=== PATIENT | male | born 1960 | race Caucasian/White ===

== ENCOUNTER 2016-12-31 08:05 | Emergency (ER) | payer OTHER ==
[2016-12-31 08:16] VITALS: RESP 16
[2016-12-31 08:36] LABS: % IMMATURE GRANULYOCYTES 0.3 % (0.0-1.1); ABSOLUTE IMMATURE GRANULOCYTES 0.03 10^3/uL (0.00-0.10); ADD DIFF? NO; ADD MORPH? NO; ADD SCAN? NO; ATYPICAL LYMPHOCYTE FLAG 10 (0-99); FRAGMENT RBC FLAG 0 (0-99); HEMATOCRIT 46.9 % (40.0-51.0); HEMOGLOBIN 16.3 g/dL (13.7-17.5); LEFT SHIFT FLG 0 (0-99); LIPEMIA HEMOLYSIS FLAG 90 (0-99); MEAN CELL HEMOGLOBIN 31.5 pg (27.9-34.1); MEAN CELL HEMOGLOBIN CONCENTR. 34.8 g/dL (32.4-36.7); MEAN CELL VOLUME 90.5 fL (81.5-99.8); MEAN PLATELET VOLUME 10.2 fL (8.7-11.7); PLATELET CLUMPS FLAG 0 (0-99); PLATELET COUNT 191 10^3/uL (150-400); RED BLOOD CELL COUNT 5.18 10^6/uL (4.40-6.38); RED CELL DISTRIBUTION WIDTH 13.1 % (11.5-15.2)
--- NOTE | 2016-12-31 08:36 | EDPHY ---
H & P Stated Complaint: upper abd epigastric pain for 4 days, worse yesterday. Time Seen by Provider: 12/31/16 08:19 HPI/ROS: This patient has epigastric pain that is described as achy in nature 3/10 intensity and nonradiating. If the worsened with food last night he notes no other exacerbating or alleviating factors. Symptoms 1st started gradually 4 days ago and became constant 2 days prior to arrival. He notes no other exacerbating or alleviating factors besides the food worsening symptoms. He has had some GERD symptoms with acid reflux feeling into his esophagus at times does not think the symptoms are worse when he is lying flat compared to standing up. He drove himself here by private car for further evaluation. He is also concerned about pancreatitis as he did have 1 episode of pancreatitis 13 years ago and had cholecystectomy at that time. ROS: No fevers chills or other constitutional symptoms HEENT: No complaints Pulmonary: No shortness of breath. No cough. Cardiovascular: No chest pain. No heart palpitations no lower knee swelling, no lightheadedness. GI: No nausea or vomiting. Normal bowel movements. No diarrhea. He does report feeling of abdominal bloating that is mild. : No urinary symptoms or testicular pain. Neuro: No complaints Endocrine no complaints Integumentary: No skin rash 10 point ROS is otherwise negative. Source: Patient Exam Limitations: No limitations - Personal History Current Tetanus Diphtheria and Acellular Pertussis (TDAP): Yes Tetanus Vaccine Date: unsure - Medical/Surgical History PMH: Alcohol abuse in the past he quit smoking 13 years ago when he had pancreatitis. Cholecystitis with cholecystectomy Borderline hypertension Hx Asthma: No Hx Chronic Respiratory Disease: No Hx Diabetes: No Hx Cardiac Disease: No Hx Renal Disease: No Hx Cirrhosis: No Hx Alcoholism: No Hx HIV/AIDS: No Hx Splenectomy or Spleen Trauma: No Other PMH: hiv, pancreatitis - Family History Significant Family History: Heart disease (Father had quadruple bypass at age 50 ) - Social History Smoking Status: Current some day smoker Alcohol Use: None Drug Use: None - Physical Exam Exam: General Appearance: Alert, no distress. Eyes: Pupils equal and round no pallor or injection. ENT, Mouth: Mucous membranes moist. Oropharynx is clear with no dysphonia Respiratory: There are no retractions, lungs are clear to auscultation. Cardiovascular: Regular rate and rhythm. No murmur gallop or rub no peripheral edema. Gastrointestinal: Normoactive, soft, mild right upper quadrant tenderness with no guarding or rebound. Back: No CVA tenderness Neurological: GCS 15 with no focal sensory or motor deficits. Skin: Warm and dry, no rashes. Musculoskeletal: Neck is supple nontender. Extremities are symmetrical, full range of motion. Psychiatric: Mood and affect are normal DIFFERENTIAL DIAGNOSIS: After history and physical exam differential diagnosis was considered for GERD, gastritis, ulcer, hepatitis, pancreatitis, cardiac disease Constitutional: Initial Vital Signs Temperature (C) 36.9 C 12/31/16 08:14 Heart Rate 74 12/31/16 08:14 Respiratory Rate 16 12/31/16 08:14 Blood Pressure 155/108 H 12/31/16 08:14 O2 Sat (%) 92 12/31/16 08:14 O2 Delivery Mode Room Air Allergies/Adverse Reactions: lisinopril [From Prinivil] Allergy (Unknown, Verified 09/28/12 09:00) Home Medications: Medication Instructions Recorded *Pharmacy Completed See Comment 09/28/12 09/28/12 Eszopiclone [Lunesta] 3 mg PO HS 09/28/12 Pramipexole Di-HCl [Mirapex 0.25 0.75 mg PO HS 09/28/12 mg (RX)] Reconciled By 10/10/12 Albuterol [Ventolin Hfa Inhaler] 2 puffs IH Q4 PRN #0 mdi 04/14/16 Descovy 200-25 mg Tablet 04/14/16 Tivicay 04/14/16 levOFLOXACIN [levAQUIN (*)] 750 mg PO DAILY #10 tab 04/14/16 methylPREDNISolone [Medrol Dose 1 each PO AD #0 ea 04/14/16 Carrillo] Medical Decision Making - Diagnostics EKG Interpretation: 12 lead EKG performed at 8:36 a.m. indication epigastric pain rule out coronary syndrome or other abnormalities reveals sinus rhythm at 64 Intervals: Normal throughout [place]: Normal throughout ST segments: Normal throughout Overall assessment: Normal EKG. Please refer to trace master for complete read ED Course/Re-evaluation: IV . Patient declines analgesics initially. Review of patient's labs reveals normal comp metabolic panel and normal lipase. The minimal leukocytosis but no anemia. Patient is treated with a GI cocktail with partial improvement. Discussion: After workup, patient's presentation is most consistent with gastritis or GERD. No evidence of VA, hepatitis, pancreatitis, he does not have a surgical abdomen. Explained to the patient that differential diagnosis does include H pylori and he understands the need to follow up with GI for any ongoing symptoms despite the treatment plan. He also understands the need to return to the emergency department should he have any significant worsening of symptoms despite the treatment plan as today's diagnosis is initial diagnosis. - Data Points Laboratory Results: Laboratory Results 12/31/16 08:20 12/31/16 08:20 12/31/16 12/31/16 08:20 08:20 WBC 10.24 10^3/uL H 10^3/uL (3.80-9.50) RBC 5.18 10^6/uL 10^6/uL (4.40-6.38) Hgb 16.3 g/dL g/dL (13.7-17.5) Hct 46.9 % % (40.0-51.0) MCV 90.5 fL fL (81.5-99.8) MCH 31.5 pg pg (27.9-34.1) MCHC 34.8 g/dL g/dL (32.4-36.7) RDW 13.1 % % (11.5-15.2) Plt Count 191 10^3/uL 10^3/uL (150-400) MPV 10.2 fL fL (8.7-11.7) Neut % (Auto) 55.1 % % (39.3-74.2) Lymph % (Auto) 36.7 % % (15.0-45.0) Dickson % (Auto) 5.3 % % (4.5-13.0) Eos % (Auto) 1.9 % % (0.6-7.6) Baso % (Auto) 0.7 % % (0.3-1.7) Nucleat RBC Rel Count 0.0 % % (0.0-0.2) Absolute Neuts (auto) 5.65 10^3/uL 10^3/uL (1.70-6.50) Absolute Lymphs (auto) 3.76 10^3/uL H 10^3/uL (1.00-3.00) Absolute Monos (auto) 0.54 10^3/uL 10^3/uL (0.30-0.80) Absolute Eos (auto) 0.19 10^3/uL 10^3/uL (0.03-0.40) Absolute Basos (auto) 0.07 10^3/uL 10^3/uL (0.02-0.10) Absolute Nucleated RBC 0.00 10^3/uL 10^3/uL (0-0.01) Immature Gran % 0.3 % % (0.0-1.1) Immature Gran # 0.03 10^3/uL 10^3/uL (0.00-0.10) Sodium 140 mEq/L mEq/L (134-144) Potassium 4.2 mEq/L mEq/L (3.5-5.2) Chloride 107 mEq/L mEq/L (97-110) Carbon Dioxide 22 mEq/l mEq/l (22-31) Anion Gap 11 mEq/L mEq/L (8-16) BUN 12 mg/dL mg/dL (7-23) Creatinine 1.1 mg/dL mg/dL (0.7-1.3) Estimated GFR > 60 Glucose 115 mg/dL H mg/dL (70-100) Calcium 9.1 mg/dL mg/dL (8.5-10.4) Total Bilirubin 0.8 mg/dL D mg/dL (0.1-1.4) AST 20 IU/L IU/L (17-59) ALT 34 IU/L IU/L (21-72) Alkaline Phosphatase 80 IU/L IU/L (38-126) Total Protein 7.1 g/dL g/dL (6.3-8.2) Albumin 4.1 g/dL g/dL (3.5-5.0) Lipase 92 IU/L IU/L (23-300) Medications Given: Discontinued Medications Al Hydroxide/Mg Hydroxide (Maalox Susp) 30 ml PO EDNOW ONE Stop: 12/31/16 09:07 Last Admin: 12/31/16 09:12 Dose: 30 ml Hyoscyamine Sulfate (Levsin, Hyomax-Sl) 0.125 mg PO EDNOW ONE Stop: 12/31/16 09:08 Last Admin: 12/31/16 09:12 Dose: 0.125 mg Lidocaine (Lidocaine 2% Viscous) 5 ml PO EDNOW ONE Stop: 12/31/16 09:09 Last Admin: 12/31/16 09:12 Dose: 10 ml Departure - Departure Disposition: Home, Routine, Self-Care Clinical Impression: Gastritis Qualifiers: Gastritis type: other gastritis Chronicity: acute Gastritis bleeding: without bleeding Qualified Code(s): K29.00 - Acute gastritis without bleeding Condition: Good Instructions: Gastritis (ED), Diet for Stomach Ulcers and Gastritis (ED) Additional Instructions: Diagnosis: Gastritis Plan: [place] diet until he feel improved Start Zantac daily and use Maalox in addition. Separate the timing of ingestion of Zantac from your HIV meds by 2-6 hours. Follow up with primary care physician for recheck in 3-7 days If you're still not improving with treatment plan, make an appointment to see Dr. Dumont -GI specialist. His numbers provided below. Return to the emergency department for significant worsening despite the treatment plan Referrals: Rosita Root MD [Primary Care Provider] - As per Instructions Geovany Dumont MD [Medical Doctor] - As per Instructions
--- NOTE | 2016-12-31 08:38 | CPEKG ---
Heart Rate: 64 RR Interval: 938 P-R Interval: 192 QRSD Interval: 88 QT Interval: 400 QTC Interval: 413 P Henriette: 59 QRS Henriette: 10 T Wave Henriette: 12 EKG Severity - NORMAL ECG - EKG Impression: SINUS RHYTHM Electronically Signed By: Thom Antonio 31-Dec-2016 09:29:17
[2016-12-31 08:45] LABS: ALANINE AMINOTRANSFERASE 34 IU/L (21-72); ALBUMIN 4.1 g/dL (3.5-5.0); ALKALINE PHOSPHATASE 80 IU/L (38-126); ANION GAP 11 mEq/L (8-16); ASPARTATE AMINOTRANSFERASE 20 IU/L (17-59); BILIRUBIN,TOTAL 0.8 mg/dL (0.1-1.4); CALCIUM 9.1 mg/dL (8.5-10.4); CARBON DIOXIDE 22 mEq/l (22-31); CHLORIDE 107 mEq/L (97-110); CREATININE 1.1 mg/dL (0.7-1.3); GLOMERULAR FILTRATION RATE > 60; GLUCOSE 115 mg/dL (70-100); POTASSIUM 4.2 mEq/L (3.5-5.2); SODIUM 140 mEq/L (134-144); TOTAL PROTEIN 7.1 g/dL (6.3-8.2)
[2016-12-31] MEDS ORDERED: MAG HYDROX/AL HYDROX/SIMETH 30 ML UDCUP PO ONE (09:06)
[2016-12-31] MEDS ORDERED: HYOSCYAMINE SULFATE 0.125 MG TAB PO ONE (09:07)
[2016-12-31] MEDS ORDERED: LIDOCAINE 2% VISCOUS 15 ML UDCUP PO ONE (09:08)
[2016-12-31 09:34] VITALS: BP 142/88; PULSE 96; TEMP 98.2; O2SAT 94
== END 2016-12-31 09:34 | disposition home or self-care (01) ==
LOC: CED 08:05
DX: K29.00 Acute gastritis without bleeding (principal); F17.200 Nicotine dependence, unspecified, uncomplicated
CPT/HCPCS: 80053-PO; 83690-PO; 85025-PO

== ENCOUNTER → 2017-02-18 | Outpatient (CLI) | payer OTHER | LOC: FCPNEURO 23:46 | PROVIDERS: ATTEND Internal Medicine Sleep Medicine | DX: G47.33 Obstructive sleep apnea (adult) (pediatric) (principal); G47.61 Periodic limb movement disorder ==

== ENCOUNTER → 2017-09-19 | Outpatient (CLI) | payer OTHER | LOC: BMCIMAGING 10:43 | PROVIDERS: ATTEND Nurse Practitioner Adult Health | DX: M25.552 Pain in left hip (principal) ==

== ENCOUNTER 2018-04-05 09:56 | Inpatient (IN) | payer OTHER ==
--- NOTE | 2018-04-05 06:13 | PDHPUP ---
History & Physical Update H&P update statement: This history and physical update is based on an assessment of the patient which was completed after admission or registration (within 24 hours), but prior to the surgery/procedure. H&P update: H&P reviewed & patient examined, no change in patient's condition since H&P completed
[~2018-04-05 09:56] MED LIST: ROPIVACAINE 0.2% 80 MG, EPINEPHrine 0.2 MG, KETOROLAC TROMETHAMINE 30 MG in SYRINGE 0 ML IU ONE; TRANEXAMIC ACID 3,000 MG in NS (SYRINGE) 50 ML IRR ONE; TRANEXAMIC ACID 3,000 MG/50 ML BAG IRR ONE
[2018-04-05] MEDS ORDERED: DEXAMETHASONE 4 MG/ML VIAL IVP ONE (10:02)
[2018-04-05] MEDS ORDERED: ACETAMINOPHEN 325 MG TAB PO ONE (10:02)
[2018-04-05] MEDS ORDERED: FAMOTIDINE 20 MG TAB PO ONE (10:02)
[2018-04-05] MEDS ORDERED: ceFAZolin 2 GM/DEXTROSE 100 ML IV ONE (10:02)
[2018-04-05] MEDS ORDERED: LR 1,000 ML IV ONE (10:03)
[2018-04-05] MEDS ORDERED: BUPIVACAINE/DEXTROSE 7.5MG/ML 2 ML SPINAL AMP SP ONE (10:25)
[2018-04-05] MEDS ORDERED: PROPOFOL 200 MG/20 ML VIAL ONE (10:25)
[2018-04-05] MEDS ORDERED: LIDOCAINE 2% 5 ML SDV ONE (10:25)
[2018-04-05] MEDS ORDERED: PROPOFOL/EMULSION 500 MG/50 ML BOTTLE IV ONE ×2 (10:25)
[2018-04-05] MEDS ORDERED: MIDAZOLAM 2 MG/2 ML VIAL IVP ONE (10:37)
[2018-04-05] MEDS ORDERED: PHENYLEPHRINE HCL 100 MCG/ML SYR IVP PRN (10:38)
[2018-04-05] MEDS ORDERED: HYDROmorphONE/DILAUDID 2 MG/ML INJ IVP PRN (10:38)
[2018-04-05] MEDS ORDERED: METOCLOPRAMIDE 10 MG/2 ML VIAL IVP PRN ×2 (10:38→13:34)
[2018-04-05] MEDS ORDERED: NALOXONE HCL 0.4 MG/ML INJ IVP PRN (10:38)
[2018-04-05] MEDS ORDERED: oxyCODONE IR 5 MG TAB PO PRN (10:38)
[2018-04-05] MEDS ORDERED: LR 500 ML IV PRN (10:38)
[2018-04-05] MEDS ORDERED: ONDANSETRON 4 MG/2 ML VIAL IVP PRN ×2 (10:38→13:34)
[2018-04-05] MEDS ORDERED: MEPERIDINE 25 MG/0.5 ML AMP IVP PRN (10:38)
[2018-04-05] MEDS ORDERED: fentaNYL 100 MCG/2 ML INJ IVP PRN (10:38)
--- NOTE | 2018-04-05 11:25 | PDANEPAE ---
ANE Past Medical History - Cardiovascular History Hx Hypertension: Yes Hx Arrhythmias: No Hx Chest Pain: No Hx Coronary Artery / Peripheral Vascular Disease: No Hx CHF / Valvular Disease: No Hx Palpitations: No - Pulmonary History Hx COPD: No Hx Asthma/Reactive Airway Disease: No Hx Recent Upper Respiratory Infection: No Hx Oxygen in Use at Home: No Hx Sleep Apnea: Yes Sleep Apnea Screening Result - Last Documented: Positive Pulmonary History Comment: GABBI does not use CPAP - Neurologic History Hx Cerebrovascular Accident: No Hx Seizures: No Hx Dementia: No - Endocrine History Hx Diabetes: No - Renal History Hx Renal Disorders: No - Liver History Hx Hepatic Disorders: No - Neurological & Psychiatric Hx Hx Neurological and Psychiatric Disorders: No - Cancer History Hx Cancer: No - Congenital Disorder History Hx Congenital Disorders: No - GI History Hx Gastrointestinal Disorders: Yes Gastrointestinal History Comment: reflux - Other Health History Other Health History: HIV. DENTURES - Chronic Pain History Chronic Pain: No - Surgical History Prior Surgeries: none in last 5 yrs. gallbladder removed 12-15 yrs ago ANE Review of Systems Review of Systems: - Exercise capacity METS (RN): 4 METS ANE Patient History - Allergies Allergies/Adverse Reactions: lisinopril [From Prinivil] Allergy (Unknown, Verified 03/25/18 16:19) Other-Enter Comments - Home Medications Home Medications: Dolutegravir Sodium [Tivicay] 50 mg PO DAILY 03/18/18 [Last Taken 04/05/18 07:00 ] Emtricitabine/Tenofov Alafenam [Descovy 200-25 mg Tablet] 1 tab PO DAILY [Last Taken 04/05/18 07:00] Metoprolol Succinate Xr [Toprol Xl 50 mg (*)] 50 mg PO DAILY 03/18/18 [Last Taken 04/05/18 07:00] Pramipexole Di-HCl [Mirapex 0.25 mg (*)] 0.25 mg PO HS 03/18/18 [Last Taken ] Zolpidem Tartrate [Ambien 5MG (*)] 10 mg PO HS 03/18/18 [Last Taken 04/04/18] amLODIPine BESYLATE [Amlodipine Besylate] 2.5 mg PO DAILY 03/18/18 [Last Taken 04/05/18 07:00] - NPO status NPO Since - Liquids (Date): 04/05/18 NPO Since - Liquids (Time): 06:30 NPO Since - Solids (Date): 04/04/18 NPO Since - Solids (Time): 22:00 - Smoking Hx Smoking Status: Current some day smoker - Family Anes Hx Family Hx Anesthesia Complications: none ANE Labs/Vital Signs - Vital Signs Blood Pressure: 134/93 Heart Rate: 62 Respiratory Rate: 18 O2 Sat (%): 93 Height: 182.88 cm Weight: 106.594 kg ANE Physical Exam - Airway Neck exam: FROM Mallampati Score: Class 1 Mouth exam: dentures - Pulmonary Pulmonary: no respiratory distress, no rales or rhonchi, clear to auscultation - Cardiovascular Cardiovascular: regular rate and rhythym, no murmur, rub, or gallop - ASA Status ASA Status: III ANE Anesthesia Plan Anesthesia Plan: spinal
[2018-04-05] MEDS ORDERED: ePHEDrine SULFATE 25 MG/5 ML SYR ONE (12:59)
[2018-04-05] MEDS ORDERED: ONDANSETRON DISINTEGRATING 4 MG TAB PO PRN (13:34)
[2018-04-05] MEDS ORDERED: PROMETHAZINE HCL 25 MG SUPPR PR PRN (13:34)
[2018-04-05] MEDS ORDERED: CYCLOBENZAPRINE 10 MG TAB PO PRN (13:34)
[2018-04-05] MEDS ORDERED: BISACODYL 10 MG SUPP PR PRN (13:34)
[2018-04-05] MEDS ORDERED: TEMAZEPAM 15 MG CAP PO PRN (13:34)
[2018-04-05] MEDS ORDERED: diphenhydrAMINE 25 MG CAP PO PRN (13:34)
[2018-04-05] MEDS ORDERED: DIPHENOXYLATE/ATROPINE LOMOTIL 1 TAB PO PRN (13:34)
[2018-04-05] MEDS ORDERED: MAGNESIUM HYDROXIDE 30 ML UDCUP PO PRN (13:34)
[2018-04-05] MEDS ORDERED: POLYETHYLENE GLYCOL 3350 17 GM PKT PO PRN (13:34)
[2018-04-05] MEDS ORDERED: PROMETHAZINE HCL 25 MG/ML INJ IVP PRN (13:34)
[2018-04-05] MEDS ORDERED: LACTULOSE 20 GM/30 ML UDCUP PO PRN (13:34)
--- NOTE | 2018-04-05 13:34 | POSTOPPROG ---
Post Op Note Date of Operation: 04/05/18 Surgeon: Pascual Simms Sheet Catcher: Rosmery Simms PA-C Anesthesiologist: Dr. Kern Anesthesia: Spinal Pre-op Diagnosis: left hip OA Post-op Diagnosis: same Indication: left hip pain Procedure: Left THADDEUS Findings: severe left hip OA Inf/Abcess present in the surg proc area at time of surgery?: No EBL: 50-100
[2018-04-05] MEDS ORDERED: LR 1,000 ML IV SCH (14:00)
--- NOTE | 2018-04-05 14:18 | PDMN ---
Medical Necessity Medical necessity: Pt meets inpt criteria per MD order and [facility] S-560, Hip Arthroplasty, Medicare inpt only list. 58 y/o w/L hip OA admitted for L THADDEUS and post-op care.
--- NOTE | 2018-04-05 14:53 | POSTANESTH ---
Post Anesthetic Evaluation Cardiovascular Status: Normal, Stable Respiratory Status: Normal, Stable Level of Consciousness/Mental Status: Can Participate in Eval Pain Control: Adequate, Prn Tx Ordered Nausea/Vomiting Control: Adequate, Prn Tx Ordered Complications Possibly Related to Anesthesia: None Noted
[2018-04-05] MEDS: ACETAMINOPHEN 325 MG TAB PO SCH (17:32)
[2018-04-05] MEDS: oxyCODONE IR 5 MG TAB PO PRN ×2 (17:33→21:24)
[2018-04-05] MEDS: ceFAZolin 2 GM/DEXTROSE 100 ML IV SCH (19:40)
[2018-04-05] MEDS ORDERED: PRAMIPEXOLE 0.25 MG TAB PO SCH (21:00)
[2018-04-05] MEDS: SENNOSIDES/DOCUSATE SODIUM TAB PO SCH (21:24)
[2018-04-05] MEDS: ASPIRIN 81 MG CHEWABLE TAB PO SCH (21:25)
[2018-04-05] MEDS: FAMOTIDINE 20 MG TAB PO SCH (21:25)
[2018-04-06] MEDS: ACETAMINOPHEN 325 MG TAB PO SCH ×2 (00:04→05:21)
[2018-04-06] MEDS: ceFAZolin 2 GM/DEXTROSE 100 ML IV SCH (04:31)
[2018-04-06] MEDS: oxyCODONE IR 5 MG TAB PO PRN (07:02)
[2018-04-06] MEDS ORDERED: amLODIPine BESYLATE 5 MG TAB PO SCH (09:00)
[2018-04-06] MEDS ORDERED: Emtricitabine/Tenofov Alafenam [Descovy 200-25 Mg Tablet] 1 TAB PO SCH (09:00)
[2018-04-06] MEDS ORDERED: Dolutegravir Sodium [Tivicay] 50 MG PO SCH (09:00)
[2018-04-06] MEDS ORDERED: METOPROLOL SUCCINATE XR 50 MG TAB PO SCH (09:00)
[2018-04-06 09:12] VITALS: BP 114/74
[2018-04-06] MEDS: SENNOSIDES/DOCUSATE SODIUM TAB PO SCH (09:12)
[2018-04-06] MEDS: ASPIRIN 81 MG CHEWABLE TAB PO SCH (09:13)
[2018-04-06] MEDS: FAMOTIDINE 20 MG TAB PO SCH (09:13)
--- NOTE | 2018-04-06 12:35 | ASDISCHSUM ---
Discharge Information Plan Status:Home with No Needs Medically Cleared to Leave:04/05/2018 Discharge Date:04/06/2018 11:22 AM CM D/C Disposition:Home, Routine, Self-Care ADT D/C Disposition:Home, Routine, Self-Care Projected Discharge Date:04/06/2018 11:22 AM Transportation at D/C:Family Discharge Delay Reason: Follow-Up Date:04/06/2018 11:22 AM Discharge Slot:1 - 8:01 am - 12:00 noon Final Diagnosis:Left hip arthroplasty Placement Information Patient Contact Information Contact Name:ARLETH Relationship: Address:[address] [place] Phone: State/Zip Code:[place] [address] Email: Financial Information Financial Class:[facility] Primary Plan Desc:[facility] Primary Plan Number:[id number] Secondary Plan Desc: Secondary Plan Number: Assessment Information LACE LACE Length of stay for Answers: 1 day current admission Acuity / Level of Answers: Yes Care: Did the patient have an inpatient admission? Comorbidities - select Answers: AIDS all that apply Other Notes: Sleep apnea # of Emergency department Answers: 0 visits in the last 6 months Social determinants Answers: History of substance abuse (ETOH, street drugs, prescription drugs, etc.) Score: 12 Date Signed: 04/06/2018 11:25 AM Electronically Signed By:Jyoti Cardona RN [facility] Progress Note CM Tiera VILLALOBOS Note Notes: Reviewed chart. Pt admitted for a planned left hip arthroplasty. Pt to discharge home independently with no identified needs. No MOLLY/MARCIA signed, not applicable. Pt to follow up as directed. CM available for any further issues or concerns. Discharge Plan: Home independently Date Signed: 04/06/2018 11:27 AM Electronically Signed By:Jyoti Cardona RN Intervention Information
--- NOTE | 2018-04-06 12:41 | ASMTCMCOM ---
CM Note CM Note Notes: Reviewed chart. Pt admitted for a planned left hip arthroplasty. Pt to discharge home independently with no identified needs. No IM/KENNEDY signed, not applicable. Pt to follow up as directed. CM available for any further issues or concerns. Discharge Plan: Home independently Date Signed: 04/06/2018 11:27 AM Electronically Signed By:Jyoti Cardona RN
--- NOTE | 2018-04-06 12:41 | ASMTLACE ---
SHAKIRAE Length of stay for Answers: 1 day current admission Acuity / Level of Answers: Yes Care: Did the patient have an inpatient admission? Comorbidities - select Answers: AIDS all that apply Other Notes: Sleep apnea # of Emergency department Answers: 0 visits in the last 6 months Social determinants Answers: History of substance abuse (ETOH, street drugs, prescription drugs, etc.) Score: 12 Date Signed: 04/06/2018 11:25 AM Electronically Signed By:Jyoti Cardona RN
--- NOTE | 2018-04-06 21:36 | SOAPPROG ---
SOAP Progress Note Assessment/Plan: Assessment: Haim is doing well POD 1 s/p LTHA pain is well controlled on oral pain meds VTE ppx: recommend aspirin 81 mg BID for 4 weeks Anemia: mild, expected postop D/c planning: patient has done much better than anticipated. Patient may discharge to home once released from PT. postop urinary retention: straight cath'd yesterday, resolved today Plan: 04/06/18 21:35 Subjective: Patient is doing well today, denies SOB, chest pain and N/V Objective: Vital Signs Temp Pulse Resp BP Pulse Ox 36.3 C 75 16 114/74 92 04/06/18 07:33 04/06/18 09:10 04/06/18 09:10 04/06/18 09:10 04/06/18 09:10 Laboratory Results 04/06/18 05:08 04/05/18 04/06/18 04/07/18 05:59 05:59 05:59 Intake Total 2100 300 Output Total 0619 503 Balance -066 -657 LLE: incision dressing is clean and dry, NVI, +pf/df ICD10 Worksheet Patient Problems: Problems Problem Status Onset Avascular necrosis of bone of left hip Acute Primary localized osteoarthritis of left hip Acute
--- NOTE | 2018-04-08 02:44 | GOP ---
DATE OF OPERATION: 04/05/2018 SURGEON: John Simms MD SKULL SPLITTER: NANNETTE Bardales. PREOPERATIVE DIAGNOSIS: Left hip osteoarthritis. POSTOPERATIVE DIAGNOSIS: Left hip osteoarthritis. PROCEDURE PERFORMED: Left total hip arthroplasty. FINDINGS: ESTIMATED BLOOD LOSS: 200 cc. INDICATIONS: The patient has progressively worsening arthritis of the hip which has failed medical m anagement. The patient understands the treatment option including continued non-operative care and h as selected surgical intervention. The patient has decided to undergo total hip arthroplasty via the direct anterior approach understanding the risks of the procedure including, but not limited to, kiki rovascular injury, infection, persistent pain, component wear and loosening, deep venous thrombosis, pulmonary embolism, limb length inequality (including dislocation), and intraoperative fractures. DESCRIPTION OF PROCEDURE: After proper identification of the patient including verification and felipe ing the surgical site, the patient was brought to the operating room and placed in the supine positio n. All bony prominences were well padded. Anesthesia was induced without complication and intraveno us prophylactic antibiotics were administered prior to skin incision. After prepping and draping in the usual sterile fashion, attention was drawn to the contralateral pel vis for attachment of the computer navigation tracker. Three percutaneous incisions were made over t he iliac crest and the pelvic tracker was affixed using threaded 3.5 mm pins yielding excellent fixat ion. Using computer navigation the patient's leg length and topographical pelvic anatomy was registe red without complication. Attention was then drawn to surgical exposure of the hip. An incision was made with a #10 Bard Fran r blade starting 3 cm lateral and 3 cm distal to the anterior superior iliac spine measuring 8 cm to 10 cm and coursing distally toward the greater trochanter. The skin and subcutaneous tissues were di vided sharply down the fascia man. The fascia man was incised in line with the skin incision expos ing the underlying tensor fascia man muscle. This muscle was bluntly elevated from the fascia and t he first extracapsular Cobra retractor was placed laterally at the junction of the superior femoral n jonathan and greater trochanter. The lateral femoral circumflex vessels were identified, cauterized and d ivided with the Aquamantys bipolar cautery. The deep investing fascia of the TFL was divided to allo w proper mobilization of the muscle preventing damage during retraction. The reflected head of the r ectus femoris muscle was elevated off the anterior hip capsule and a medial Cobra retractor was place d just proximal to the lesser trochanter. The anterior capsulotomy was made sharply from the superolateral acetabulum to the saddle junction of the superior femoral neck and greater trochanter, then coursing inferomedial towards the lesser troc hanter. The retractors were then placed in the intracapsular position for femoral neck osteotomy. C orresponding to preoperative templating the osteotomy was made with the oscillating saw protecting th e greater trochanter and soft tissues. The femoral head was removed from the acetabulum with a corks crew and confirmed to be severely arthritic with exposed bone, deformity and osteophytes. Similar fi ndings were confirmed in the acetabulum. The Arch table extension was then placed in 40 degrees external rotation. Attention was then drawn t o the acetabular preparation. After placement of the anterior and posterior Cobra retractors outside the labrum and intrascapular the circumferential labrum was removed sharply. The foveal contents we re then removed and hemostasis obtained with cautery. The anatomy of the acetabulum was then registe red using computer navigation. The first reamer selected was sized using the removed femoral head. Reaming began with robotic cris t at 40 degrees of abduction and 20 degrees of anteversion using computer navigation. Reaming ceased 0 mm less than the definitive acetabular component. The final acetabular component was inserted usi ng the computer to achieve proper orientation yielding excellent purchase and stability in the acetab ulum. The final acetabular liner was then placed and its seating confirmed. Attention was then turned to the femur. The Arch table extension was placed in extension and adducti on delivering the osteotomized femoral neck into the wound. A 2-pronged femoral elevator was placed at the calcar and another at the tip of the greater trochanter. The posterolateral capsule was relea sed with cautery allowing mobilization of the femur lateral and anterior for preparation. The automobile service advisor al rotators were visualized and preserved. A curette and rongeur were used to open the starting poin t for broaching. Serial broaching started with the #0 broach and ended with the broach that exhibited excellent fit in the proximal femur. A change in pitch during mallet strikes was accompanied by the inability to advance the broach any further. The trial reduction was performed and fluoroscopic tiffany igation was utilized to check limb length. Adjustments were made to equalize limb length accordingly . After the final trials were accepted they were removed and the wound was copiously lavaged. The femo ral component was seated to the same depth as the final broach and the femoral head was impacted onto the clean trunnion. The hip was then reduced for the final time and once more fluoroscopic navigati on used to check that limb length equality was achieved. The wound was irrigated and closed in layers, the fascia man with 2-0 Quill, the subcutaneous tissue with a 2-0 Quill, and the skin with Dermabond, including the small incisions for computer navigation . Sterile dressings were applied. Final sharps and sponge counts were accurate. The patient was th en transferred to a hospital bed and brought to the recovery room in stable condition. IMPLANTS: Accolade II size 7, 127 acetabular component, Trident II 54 mm, liner is a Trident X3 36 m m, head is a Biolox Delta 36 mm +0. /[id number]/MODL
--- NOTE | 2018-04-11 16:12 | GDS ---
ADMISSION DIAGNOSIS: Left hip osteoarthritis. DISCHARGE DIAGNOSIS: Left hip osteoarthritis. PROCEDURE: Left total hip arthroplasty. VTE PROPHYLAXIS: Recommend aspirin 81 mg twice daily for 4 weeks. BRIEF DESCRIPTION OF HOSPITAL STAY: Patient was admitted for an elective joint arthroplasty. The vasiliy knight tolerated the procedure well and has passed physical therapy. The patient was given appropriat e antibiotic prophylaxis and venous thromboembolism prophylaxis. The patient's pain was well control led on oral pain medication, patient was holding down food, and had urinated. Decision was made to d ischarge the patient. The patient was given post-operative prescriptions pre-operatively. PLAN: Follow up as scheduled in Dr. Simms's office in 3 weeks. /[id number]/MODL
== END 2018-04-06 11:22 | disposition home or self-care (01) | DRG 470 ==
LOC: F3N 09:56
PROVIDERS: ADMIT Orthopaedic Surgery; ATTEND Orthopaedic Surgery
PROC: 0SRB04Z Replacement of Left Hip Joint with Ceramic on Polyethylene Synthetic Substitute, Open Approach (ICD-10-PCS; principal; 2018-04-05 12:00)
DX: M16.12 Unilateral primary osteoarthritis, left hip (principal); I10 Essential (primary) hypertension; G47.33 Obstructive sleep apnea (adult) (pediatric); K21.9 Gastro-esophageal reflux disease without esophagitis; G89.29 Other chronic pain; Z21 Asymptomatic human immunodeficiency virus [HIV] infection status; Z79.899 Other long term (current) drug therapy; Z87.891 Personal history of nicotine dependence
CPT/HCPCS: 97116-GP; 97161-GP; J0171; J0690; J1100; J1885; J2250; J2704; J2795